=== PATIENT | female | born 1970 | race Caucasian/White ===

== ENCOUNTER → 2023-10-22 11:34 | Outpatient (REF) | payer MEDICARE, OTHER, SELFPAY | LOC: HWWDC 11:34 | PROVIDERS: ATTENDING PHYSICIAN Family Medicine | DX: Z12.31 Encounter for screening mammogram for malignant neoplasm of breast (principal) | CPT/HCPCS: 77063; 77067 ==

== ENCOUNTER 2024-02-28 14:36 | Emergency (ER) | payer MEDICARE, OTHER, SELFPAY ==
[2024-02-28 14:40] VITALS: BP 139/102
--- NOTE | 2024-02-28 15:05 | ED.GENMED ---
History of Present Illness
General
Chief Complaint: Abdominal Symptoms
Source: patient
Exam Limitations: none
Time Seen by Provider: 02/28/24 14:48
Nursing documentation reviewed up to this point in time: agreed with
History of Present Illness
History of Present Illness:
The patient is a pleasant 53-year-old female who reports that she recently took a weight loss medication. She is unable to give me the name of it. She reports it was an injectable under the skin in her abdomen. She reports she took it about 48
hours ago. Since then, she has had constant nausea, vomiting and some diarrhea. Patient denies specific abdominal pain but states she feels very dehydrated and nauseous. She tried ODT Zofran which gave her barely any relief at home. Patient also
states she feels extremely anxious and appears very jittery. She admits that she will never take this medication again. She denies chest pain or shortness of breath. She denies fever.
Past History
Past History
ED Past Medical History: Other (Dermatomyositis)
ED Past Surgical History: Gynecological (Hysterectomy)
Social History
Tobacco: Non-smoker
Alcohol: None
Drug: None
Personal:
Living: alone
Family History
Family History: Other
Review of Systems
Review of Systems
Allergies reviewed?: Yes
All Other Systems: ROS reviewed and negative except as documented in HPI and ROS
Constitutional: Reports no symptoms
EENT: Reports no symptoms
Respiratory: Reports no symptoms
Cardiac: Reports no symptoms
ABD/GI: Reports nausea, vomiting and diarrhea
: Reports no symptoms
Musculoskeletal: Reports no symptoms
Skin: Reports no symptoms
Neurological: Reports no symptoms
Endocrine: Reports no symptoms
Hematologic/Lymphatic: Reports no symptoms
Psychiatric: Reports anxiety
Phy Exam
Physical Exam
Physical Exam:
Physical Exam
General: Patient appears extremely anxious, at times becomes tremorous but is completely conversational and nontoxic
Neck: supple. no meningeal signs. normal psoterior pharynx
Heart: Tachycardic, no murmur
Lungs: no acute respiratory distress. clear bilaterally
Abdomen: normal bowel sounds. not tender. no CVAT. Soft throughout
Neuro: alert and oriented. no focal neurological deficits
Skin: no rash
Psychiatric: well kept. interactive and cooperative
Extremities: no edema. no calf tenderness. negative homans. good distal pulses
Course
Orders/Labs/Results
Orders:
Orders
02/28/24 15:06
0.9% Sodium Chloride 1000 ml [Nss] 1,000 ml IV BOLUS
Ondansetron Injectable [Zofran] 4 mg IV NOW STA
02/28/24 15:12
Complete Blood Count/With Diff Urgent
Comprehensive Metabolic Panel Urgent
Lipase Urgent
Abnormal Lab Results
02/28/24
15:12
MCH 32.3 H pg
(27.0-31.0)
Abs Immat Gran (auto) 0.1 H 10^3/uL
(0-0.05)
Absolute Lymphs (auto) 0.3 L 10^3/uL
(1.2-3.4)
Immature Gran % 1.8 H %
(0-0.5)
Neutrophils % 89.4 H %
(42.2-75.2)
Lymphocytes % 4.8 L %
(20.5-51.1)
BUN 21 H mg/dl
(7-17)
Glucose 140 H mg/dl
(70-99)
AST 42 H U/L
(14-36)
Total Protein 8.8 H g/dl
(6.3-8.2)
Albumin 5.2 H g/dl
(3.5-5.0)
02/28/24 15:12
02/28/24 15:12
Vital Signs
Initial and Last Documented VS:
Initial Vital Signs
Temp Pulse Resp BP Pulse Ox
97.9 F 129 22 139/102 97
02/28/24 14:40 02/28/24 14:40 02/28/24 14:40 02/28/24 14:40 02/28/24 14:40
Last Documented Vital Signs
Temp Pulse Resp BP Pulse Ox
97.9 F 129 22 126/74 97
02/28/24 14:40 02/28/24 14:40 02/28/24 14:40 02/28/24 16:00 02/28/24 16:45
MDM/Problems Addressed
Differential Diagnosis Includes:
Acute viral illness, side effects from weight loss medication, small bowel obstruction
MDM/Problems Addressed:
Patient presents with acute nausea, vomiting and mild diarrhea
Chronic conditions affecting care: Previous abdomnial surgery
Acute Exacerbation and/or Progression of Chronic Illness: Previous abdomnial surgery
*Pulse Oximetry
Patient hypoxic: no
*EKG
Interpreted by ED Provider?: NA
*Potato Inspector Interpretation
Rate: tachycardiac
Interpretation: abnormal
*Critical Care Note
Total Time (30-74mins, 75-104mins- exclusive of procedures): Not Applicable
Patient Management
Social determinants of health affecting care: Living situation and Strong social support
Escalation/DeEscalation of care consider admission/obs:
Patient states she feels much better. She is able to keep fluids down. Due to patient's anxiety and jitteriness, I am extremely hesitant to give her Reglan and Compazine. Patient will be given a small dose of Ativan for 48 hours to help with her
anxiety and nausea and vomiting.
ED Attending Note
-
Portions of this chart may have been created with voice recognition software.� Occasional wrong word or��sound alike� substitutions may have occurred due to the inherent limitations of voice recognition software.
Discharge Plan
Departure
Patient Disposition: Home (Routine Discharge)
Date of Disposition: 02/28/24
Time of Disposition: 16:57
Patient with high blood pressure during this ER visit?: No
Condition: Good
Covid-19: Not Applicable
Discharge Problem:
Acute vomiting
Instructions: Clear Liquid Diet, Nausea and Vomiting, Adult (DC)
Prescriptions:
New
lorazepam [Ativan] 0.5 mg tablet
0.5 mg PO BID PRN (Reason: nausea and vomiting) Qty: 5 0RF
No Action
escitalopram oxalate 20 MG tablet
1 tab PO DAILY
Wellbutrin XL (24 HR extended release):
300 mg PO DAILY
amoxicillin-pot clavulanate 1 TABLET tablet
1 tab PO Q12 Qty: 13 0RF
oxycodone-acetaminophen 5 MG/325 MG tablet
1 tab PO Q4HPRN PRN (Reason: Pain) Qty: 10 0RF
Referrals:
Freddy June MD [Family Provider] -
Activity Restrictions/Additional Instructions:
You can take Imodium, which is sold [id number], for any diarrhea. Do not drive while taking the Ativan.
Interventions
Interventions:
*Risk Screen - Suicide Last Done: 02/28/24 14:37
*General Assessment Last Done: 02/28/24 14:41
*Neglect/Abuse Screening Last Done: 02/28/24 14:41
ED- Fall Risk Assessment Last Done: 02/28/24 15:19
*ED COVID-19 Vaccine History Last Done: 02/28/24 15:19
*Nursing Disposition Last Done: 02/28/24 17:07
LB-Rssehy-Odldbjktkd Assessment Last Done: 02/28/24 15:19
Discharge Date and Time
Discharge Date/Time: 02/28/24 17:05
Print Language: ESTONIAN
[2024-02-28 15:10] VITALS: BP 124/96
[2024-02-28] MEDS: NSS 1000 IV (15:11)
[2024-02-28] MEDS: ZOFRAN 4 MG IV (15:16)
[2024-02-28 15:21] VITALS: BMI 21.8
[2024-02-28 15:21] LABS: % Basophils 0.3 % (0-2); % Immature Granulocytes 1.8 % (0-0.5); % Lymphocytes 4.8 % (20.5-51.1); % Monocytes 3.7 % (1.7-9.3); % Neutrophils 89.4 % (42.2-75.2); Absolute Immature Granulocytes 0.1 10^3/uL (0-0.05); Absolute Lymphocytes 0.3 10^3/uL (1.2-3.4); Absolute Monocytes 0.2 10^3/uL (0.1-0.6); Absolute Neutrophils 5.6 10^3/uL (1.4-6.5); Hemoglobin 15.6 g/dL (12.0-16.0); Mean Corp Hgb Conc. 36.3 g/dL (33.0-37.0); Mean Corpuscular Hgb 32.3 pg (27.0-31.0); Mean Platelet Volume 9.8 fL (7.4-10.4); Nucleated Red Blood Cells % 0 %; Platelet Count 296 10^3/uL (130-400); Red Blood Cell Count 4.83 10^6/uL (4.20-5.40); Red Cell Dist. Width 12.7 % (11.5-14.5); White Blood Cell Count 6.2 10^3/uL (4.8-10.8)
[2024-02-28 15:37] LABS: ALT (SGPT) 29 U/L (0-35); AST (SGOT) 42 U/L (14-36); Albumin 5.2 g/dl (3.5-5.0); Alkaline Phosphatase 90 U/L (38-126); Blood Urea Nitrogen 21 mg/dl (7-17); Calcium 10.2 mg/dl (8.4-10.2); Carbon Dioxide 26 mmol/L (22-30); Chloride 99 mmol/L (98-107); Estimated Creatinine Clearance 54 ml/min; Glucose 140 mg/dl (70-99); Lipase 144 U/L (23-300); Potassium 4.4 mmol/L (3.5-5.1); Sodium 143 mmol/L (135-145); Total Bilirubin 1.1 mg/dl (0.2-1.3); Total Protein 8.8 g/dl (6.3-8.2); eGFR > 60.00
[2024-02-28 16:00] VITALS: BP 126/74
== END 2024-02-28 17:05 | disposition home or self-care (01) ==
LOC: EMR 14:36
PROVIDERS: EMERGENCY PHYSICIAN Emergency Medicine; FAMILY PHYSICIAN Family Medicine
DX: R11.2 Nausea with vomiting, unspecified (principal)
CPT/HCPCS: 99284; 96374; 96361; 80053; 83690; 85025